=== PATIENT | female | born 1955 | race Caucasian/White ===

== ENCOUNTER 2017-11-24 21:22 | Inpatient (IN) | payer SELFPAY ==
[~2017-11-24] VITALS: Ht 167.6 cm; Wt 59.0 kg
[2017-11-24] MEDS ORDERED: SODIUM CHLORIDE 0.9% 500ML 500 ML IV ONE (22:00)
--- NOTE | 2017-11-24 22:15 | Diagnostic Imaging Report ---
Exam: Head CT without contrast History: Altered mental status, possible stroke Comparison studies: None Technique: Axial images were obtained from the skull base to the vertex. Coronal and sagittal images reconstructed from the axial data. Intravenous contrast: None Findings: Exam is somewhat limited by artifacts related to patient motion. Evaluation of the posterior fossa or temporal lobes are also limited by streak artifact from the skull base. Scalp: No abnormalities. Bones: No fractures, blastic or lytic lesions. Brain sulci: Mildly prominent. Ventricles: Mild compensatory dilatation. No hydrocephalus. Extra-axial spaces: No masses, no fluid collection. Parenchyma: Hypodensity centered along the posterior left superior temporal gyri with loss of aponte-white differentiation compatible with recent nonhemorrhagic vascular insult in the left MCA territory. Infarct may involve Wernicke's area. Mass effect is local. No mass or acute hemorrhage. A few scattered hypodensities in the supratentorial white matter are nonspecific but most compatible with chronic small vessel ischemic changes. There is a chronic left striatocapsular lacunar infarct. Sellar/suprasellar region: No abnormalities. Craniocervical junction: Patent foramen magnum. No Chiari one malformation. Incidental findings: Atherosclerotic calcifications in the carotid siphons and intradural vertebral arteries. IMPRESSION: Acute vascular insult in the posterior left temporal lobe in the left MCA vascular territory. No acute hemorrhage. Chronic findings: 1. Mild generalized volume loss. 2. Mild microvascular ischemic changes. 3. Left striatocapsular lacunar infarct Findings discussed with Dr. Cuenca at 10:05 PM on 11/24/2017. Signed by: Dr. Barrera Sher M.D. on 11/24/2017 10:12 PM
[2017-11-24] MEDS ORDERED: ONDANSETRON HCL INJ 2 MG/ML VIAL ONE (22:16)
[2017-11-24] MEDS ORDERED: ONDANSETRON HCL INJ 2 MG/ML VIAL IV STA (22:30)
[2017-11-24 22:34] LABS: BASOPHILS % 0.2 % (0.0-1.0); EOSINOPHILS # (AUTO) 0.1 (0.0-0.4); EOSINOPHILS % 0.5 % (0.0-6.0); HEMATOCRIT 45.6 % (34.2-44.1); HEMOGLOBIN 15.3 g/dL (12.0-16.0); LYMPHOCYTES % 7.5 % (18.0-39.1); MEAN CORPUSCULAR HEMOGLOBIN 28.5 pg (28-32); MEAN CORPUSCULAR HGB CONC 33.6 g/dL (31-35); MEAN CORPUSCULAR VOLUME 85.1 fL (81-99); MONOCYTES # (AUTO) 0.7 (0.2-0.8); MONOCYTES % 5.5 % (4.4-11.3); NEUTROPHILS # (AUTO) 11.3 (2.1-6.9); NEUTROPHILS % 85.8 % (38.7-80.0); PLATELET COUNT 215 x10e3/uL (140-360); RED BLOOD COUNT 5.36 x10e6/uL (3.6-5.1); RED CELL DISTRIBUTION WIDTH 13.5 % (11.7-14.4)
[2017-11-24 22:44] LABS: INR 1.11; PROTHROMBIN TIME 13.5 seconds (11.9-14.5)
[2017-11-24 22:45] LABS: PARTIAL THROMBOPLASTIN TIME 21.3 seconds (23.8-35.5)
[2017-11-24 22:56] LABS: ALANINE AMINOTRANSFERASE 83 IU/L (0-55); ALBUMIN 3.8 g/dL (3.5-5.0); ALBUMIN/GLOBULIN RATIO 0.9 (0.8-2.0); ALKALINE PHOSPHATASE 168 IU/L (40-150); ANION GAP 16.7 mmol/L (8-16); BLOOD UREA NITROGEN 15 mg/dL (7-26); BUN/CREATININE RATIO 17 (6-25); CALCIUM 9.4 mg/dL (8.4-10.2); CARBON DIOXIDE 19 mmol/L (22-29); CHLORIDE 102 mmol/L (98-107); CREATINE KINASE 59 IU/L (29-168); CREATININE, SERUM 0.88 mg/dL (0.57-1.11); EST GLOMERULAR FILTRATION RATE > 60 ML/MIN (60-); GLUCOSE 119 mg/dL (74-118); LIPASE 12 U/L (8-78); MAGNESIUM 1.6 MG/DL (1.3-2.1); POTASSIUM 3.7 mmol/L (3.5-5.1); SODIUM 134 mmol/L (136-145)
[2017-11-24 23:03] LABS: ACETAMINOPHEN < 3 ug/mL (10-30)
[2017-11-24 23:05] LABS: B-TYPE NATRIURETIC PEPTIDE2 40.3 pg/mL (0-100)
[2017-11-24] MEDS ORDERED: LABETALOL HCL 5 MG/ML 20ML VIAL IV STA (23:05)
[2017-11-24 23:16] LABS: THYROID STIMULATING HORMONE 1.056 uIU/mL (0.350-4.940)
--- NOTE | 2017-11-24 23:30 | Diagnostic Imaging Report ---
CHEST SINGLE (PORTABLE), 11/24/2017 9:44 PM Technique: CHEST SINGLE (PORTABLE) Comparison: 09/28/2008 Clinical history: Altered mental status Findings: See Impression Impression: 1. Normal cardiomediastinal silhouette. 2. Mild hyperinflation without consolidation or edema. 3. No pleural effusion or pneumothorax. Note the costophrenic angles are excluded from view. Signed by: Dr Melida Kumari MD on 11/24/2017 11:26 PM
[2017-11-24 23:43] LABS: AMPHETAMINES SCREEN,URINE NEGATIVE (NEGATIVE); BENZODIAZEPINES SCREEN,URINE NEGATIVE (NEGATIVE); PHENCYCLIDINE SCREEN,URINE NEGATIVE (NEGATIVE)
[2017-11-24] MEDS ORDERED: ASPIRIN 81 MG CHEW TAB PO ONE (23:45)
[2017-11-24 23:46] LABS: BILIRUBIN,URINE NEGATIVE (NEGATIVE); CLARITY,URINE CLEAR (CLEAR); COLOR,URINE YELLOW (YELLOW); KETONES,URINE NEGATIVE (NEGATIVE); LEUKOCYTE ESTERASE ,URINE NEGATIVE (NEGATIVE); NITRITE,URINE NEGATIVE (NEGATIVE); PROTEIN,URINE DIPSTICK NEGATIVE (NEGATIVE); URINE UROBILINOGEN 0.2 mg/dL (0.2 - 1)
[2017-11-24 23:54] LABS: BACTERIA,URINE FEW /HPF; EPITHELIAL CELLS,URINE FEW /LPF; WBC,URINE (MAN) 0-5 /HPF (0-5)
[2017-11-25] VITALS (10 sets, daily range): BP systolic 147–221; BP diastolic 56–105
[2017-11-25] MEDS ORDERED: ACETAMINOPHEN 325 MG TAB ONE (00:51)
[2017-11-25] MEDS: FAMOTIDINE 20 MG/2 ML VIAL IV SCH ×3 (02:02→19:49)
[2017-11-25] MEDS: ONDANSETRON HCL INJ 2 MG/ML VIAL IV PRN ×3 (02:30→19:49)
[2017-11-25] MEDS ORDERED: MORPHINE SULFATE INJ 4 MG/ML INJ IV ONE (06:00)
[2017-11-25] MEDS ORDERED: MORPHINE SULFATE 2 MG/ML SYR ONE (06:03)
[2017-11-25] MEDS ORDERED: ASPIRIN 81 MG ENTERIC COATED PO SCH (09:00)
[2017-11-25 09:09] LABS: BASOPHILS % 0.1 % (0.0-1.0); HEMATOCRIT 43.8 % (34.2-44.1); HEMOGLOBIN 14.8 g/dL (12.0-16.0); LYMPHOCYTES # (AUTO) 0.8 (1.0-3.2); LYMPHOCYTES % 5.4 % (18.0-39.1); MEAN CORPUSCULAR HEMOGLOBIN 28.6 pg (28-32); MEAN CORPUSCULAR HGB CONC 33.8 g/dL (31-35); MEAN CORPUSCULAR VOLUME 84.7 fL (81-99); MONOCYTES # (AUTO) 0.7 (0.2-0.8); MONOCYTES % 4.4 % (4.4-11.3); NEUTROPHILS # (AUTO) 13.4 (2.1-6.9); NEUTROPHILS % 89.5 % (38.7-80.0); PLATELET COUNT 206 x10e3/uL (140-360); RED BLOOD COUNT 5.17 x10e6/uL (3.6-5.1); RED CELL DISTRIBUTION WIDTH 13.4 % (11.7-14.4)
[2017-11-25 09:54] LABS: ALANINE AMINOTRANSFERASE 63 IU/L (0-55); ALBUMIN 3.5 g/dL (3.5-5.0); ALBUMIN/GLOBULIN RATIO 0.9 (0.8-2.0); ALKALINE PHOSPHATASE 145 IU/L (40-150); ANION GAP 14.8 mmol/L (8-16); BLOOD UREA NITROGEN 13 mg/dL (7-26); BUN/CREATININE RATIO 16 (6-25); CALCIUM 8.8 mg/dL (8.4-10.2); CARBON DIOXIDE 20 mmol/L (22-29); CHLORIDE 106 mmol/L (98-107); CREATININE, SERUM 0.82 mg/dL (0.57-1.11); EST GLOMERULAR FILTRATION RATE > 60 ML/MIN (60-); GLUCOSE 130 mg/dL (74-118); POTASSIUM 3.8 mmol/L (3.5-5.1); SODIUM 137 mmol/L (136-145)
[2017-11-25] MEDS ORDERED: LORAZEPAM INJ 2 MG/ML VIAL IV ONE ×2 (10:00→12:30)
[2017-11-25 10:30] LABS: CREATINE KINASE 32 IU/L (29-168)
[2017-11-25] MEDS: LABETALOL HCL 5 MG/ML 20ML VIAL IV PRN ×2 (11:10→22:15)
--- NOTE | 2017-11-25 11:23 | Consultation ---
DATE OF CONSULTATION: November 25, 2017 NEUROLOGY CONSULTATION HISTORY OF PRESENT ILLNESS: Mrs. Mckeon is a 62-year-old, [id number] woman with unknown past medical history admitted to [facility] on November 25, 2017 for a stroke. The patient is aphasic and unable to provide any history. History is obtained from her , Jonny Mckeon, over the telephone. Some time during the afternoon on November 24, 2017, patient experienced what is presumed to be an abrupt onset of mixed aphasia. The patient's reports arriving home from work at approximately 7 p.m. on November 24, 2017. He reports Mrs. Mckeon "had trouble getting her words our." To his knowledge, there was no visual field defect or other impairment, facial droop, weakness, or dizziness. He does report mild gait impairment as well as mild confusion. Mrs. Guthrie has not experienced similar symptoms previously. After the symptoms persisted for approximately 4 hours, Mrs. Mckeon was brought to the Emergency Center at [facility] for further evaluation. Upon arrival in the Emergency Center, the patient had a temperature of 99.9 degrees Fahrenheit, blood pressure 190/80 mmHg, and pulse of 85 beats per minute. Her neurological examination was documented as follows: Alert. Expressive aphasia. Cranial nerves normal (as tested). No cerebellar findings. No motor deficit. No sensory deficit. Reflexes normal. A CT of the brain without contrast was performed and revealed an acute stroke in the left posterior middle cerebral artery distribution. Mrs. Mckeon was admitted to [facility] for further evaluation and treatment of her symptoms. REVIEW OF SYSTEMS: Unable to obtain secondary to the patient being aphasic. PAST MEDICAL HISTORY: Hypertension, congestive heart failure. Both were reportedly diagnosed during a hospitalization more than 1 year ago. Mrs. Mckeon does not routinely see a physician. PAST SURGICAL HISTORY: section, bilateral tubal ligation. PAST HOSPITALIZATIONS: Surgeries/procedures, multiple other hospitalizations for various reasons. FAMILY HISTORY: Patient's mother is recently . She had hypertension. A brother is from complications of diabetes mellitus. He had liver disease as well. A son is from an unknown cancer. All other family medical history is unknown. SOCIAL HISTORY: Patient is . Her believes she graduated high school. Mrs. Mckeon is unemployed. She smokes approximately 1 pack of cigarettes per day. Patient's reports she does not drink alcohol "on a regular basis." Mrs. Mckeon's does report occasional marijuana use. He not report use of opiates, methadone, or other recreational drugs. HOME MEDICATIONS: None. ALLERGIES: MRS. MCKEON HAS REPORTED ALLERGY TO CODEINE. NO KNOWN FOOD ALLERGIES. NO KNOWN ALLERGIES TO LATEX. NO KNOWN ALLERGY TO IODINE OR OTHER CONTRAST MATERIALS. PHYSICAL EXAMINATION: VITAL SIGNS: Height 66 inches, weight 130 pounds. BMI 21.0 kg per meter squared. Blood pressure 210/96 mmHg, pulse 72 beats per minute, respiratory rate 18 breaths per minute, oxygen saturation 100% on room air. GENERAL: The patient is awake and alert. Mildly distressed. Aphasic. HEENT: Normocephalic and atraumatic. Pupils are equal, round and reactive to light. Moist mucous membranes. NECK: Supple. No appreciable thyromegaly. No appreciable carotid bruits. CARDIOVASCULAR: S1 and S2. Regular rate and rhythm. No murmurs, rubs or gallops. RESPIRATORY: Clear to auscultation bilaterally. No wheezes, rhonchi or rales. EXTREMITIES: The skin is warm and dry. No clubbing, cyanosis or edema. The posterior tibial and dorsalis pedis pulses are 2+ and symmetric. SKIN: Abrasions and ecchymoses over the forearms and forelegs. NEUROLOGIC: Memory/attention: The patient is awake and alert. Orientation cannot be assessed secondary to aphasia. CRANIAL NERVES: Cranial nerve I: Not tested. Cranial nerves II, III, IV, : Pupils are equal and round, react briskly to light (from 4 mm to 2 mm). Extraocular movements intact. No nystagmus. Cranial nerve V: Sensation to light touch and pinprick is intact in the bilateral V1 through V3 distributions. Strength of the temporalis and masseter muscles is within normal limits. Cranial nerve VII: The face is symmetric, as are all facial movements. Strength is within normal limits. Cranial nerve VIII: Hearing is intact to finger rub bilaterally. Cranial nerve IX and X: The soft palate elevates equally and symmetrically. Cranial nerve XI: Normal strength of the bilateral sternocleidomastoid and trapezius muscles. Cranial nerve XII: The tongue protrudes midline and moves symmetrically from side to side. STRENGTH: Bulk is normal. The patient maintains both arms against gravity for more than 10 seconds each without drift. The patient maintains both legs against gravity for more than 5 seconds each without drift. Tone is normal. DTRs: Deep tendon reflexes are 1+ and symmetric at the triceps, biceps, brachioradialis, patellas, and Achilles. Plantar responses are flexor bilaterally. SENSATION: Intact to light touch and pinprick in both arms and both legs. CEREBELLAR: Unable to assess secondary to aphasia. GAIT: Deferred. SPEECH: The patient is severely aphasic, appears to be a mixed expressive/receptive aphasia. Repetition not intact. INVOLUNTARY MOVEMENTS: None. PRONATOR DRIFT: None. LABORATORY DATA: Sodium 137, potassium 3.8, chloride 106, carbon dioxide 20, anion gap 14.8, BUN 13, creatinine 0.82, estimated GFR greater than 60. BUN to creatinine ratio 16. Glucose 130, calcium 8.8, total bilirubin 0.6, AST 28, ALT 63, alkaline phosphatase 145, total protein 7.6, albumin 3.5 and globulins 4.1, albumin to globulin ratio 0.9. Lactic acid 12.9. Ammonia 70. B-natriuretic peptide 40.3. Creatinine kinase 59. CK-MB 2.90. Troponin I less than 0.001. Lipase 12. TSH 1.056. CBC with differential and platelets reveals a white blood cell count of 14.92 with 89.5% neutrophils, 5.4% lymphocytes, 4.4% monocytes, 0.0% eosinophils and 0.1% basophils. Hemoglobin and hematocrit are 14.8 and 43.8, respectively. The platelet count is 206,000. PT 13.5 and INR 1.11. PTT 21.3. Urinalysis is significant for specific gravity of 1.005, trace blood, and 6 to 10 red blood cells. Serum acetaminophen level is less than 3, serum ethyl alcohol level was less than 10.0. Urine drug screen is positive for opiates, methadone, and cannabinoids. DIAGNOSTIC STUDIES: 1. EKG 11/24/2017: Normal sinus rhythm at 72 beats per minute. 2. CT of the brain without contrast 11/24/2017: On my review, there is an acute to subacute ischemia in the left posterior middle cerebral artery distribution. There is a remote lacunar infarct in the left striatal capsular region. There is diffuse cerebral atrophy, slightly more than expected for age. There are findings compatible with mild to moderate chronic small vessel ischemic disease. 3. Chest x-ray 11/24/2017: (1) Normal cardiomediastinal silhouette. (2) Hyperinflation without consolidation or edema. (3) No pleural effusion, or pneumothorax. Note: The costophrenic angles are excluded from view. ASSESSMENT AND PLAN: Mrs. Mckeon is a 62-year-old [id number] woman with unknown past medical history (does not see a physician routinely) admitted to [facility] with a left middle cerebral artery stroke. Patient's neurological examination is significant for a severe mixed aphasia. Her laboratory data and other diagnostic studies have been reviewed and are documented above. RECOMMENDATIONS: 1. Lipid panel and hemoglobin A1c. 2. MRI of the brain without contrast has been ordered and is pending. 3. MRA of the brain and neck without contrast has been ordered and is pending. 4. Echocardiogram has been ordered and is pending. 5. Aspirin 325 mg daily by mouth for stroke prophylaxis. 6. Allow permissive hypertension for 24 to 48 hours following an ischemic stroke and pending the results of vessel imaging. Mrs. Mckeon has PRN labetalol available. 7. Follow up the results of the lipid panel. 8. Follow up the results of the hemoglobin A1c. Tight glycemic control is recommended. 9. GI prophylaxis with Pepcid 20 mg intravenously every 12 hours. DVT prophylaxis with Lovenox 40 mg subcutaneously daily. 10. Speech and physical therapy consultations have been ordered. 11. Smoking cessation counseling was provided to the patient. 12. Defer treatment of the remaining medical comorbidities to primary and other services following the patient. Thank you for this consultation. I will continue to follow this patient while she remains in the hospital. TIME SPENT: 70 minutes. Job#: [id number] ISAIAS
--- NOTE | 2017-11-25 13:09 | Diagnostic Imaging Report ---
History: Altered mental status Comparison studies: Head CT from 11/24/2017 at 2141 hours. Technique: Sagittal T2; axial DWI, FLAIR, MPGR, T1, Coronal FLAIR. Intravenous contrast: None Findings: All the sequences except for the DWI are suboptimal due to motion artifacts. In spite of the artifacts: Scalp: Normal in signal . No masses . Bone marrow: Normal in signal intensity. Extra-axial: No masses or fluid collections. Brain sulci: Appropriate for age. Ventricles: Normal in size . No hydrocephalus . Parenchyma: An acute nonhemorrhagic cortical vascular insult (hyperintense on T2 and T2 FLAIR and associated with restricted diffusion) is centered in the left superior temporal gyrus but also involve the posterior aspect of the insula. There are additional punctate infiltrates in the deep left frontal and parietal ramos radiata and centrum semiovale bilaterally. No masses, hemorrhage, or additional acute or chronic cortical ischemic insults. Suprasellar region: No abnormalities. Craniocervical junction: No abnormalities. Patent foramen magnum. No Chiari one malformation. Vessels: Normal flow-voids in the arteries and sinuses. IMPRESSION: 1. Suboptimal study due to motion artifact. 2. In spite of the artifacts, the MRI corroborates the presence of an acute nonhemorrhagic cortical vascular insult in the left superior temporal gyrus (left MCA vascular territory) that also involves the posterior insula. Additional punctate acute insults in the deep frontal and parietal white matter may be insufficiency related. Recommend obtaining cervical and intracranial studies with a CTA or when on MRA when patient can tolerate either one of them. 3. No additional gross abnormalities. Signed by: Dr. Arben Ruiz M.D. on 11/25/2017 1:06 PM
[2017-11-25] MEDS: ENOXAPARIN SOD INJ 40 MG/0.4 ML SYR SC SCH (16:42)
[2017-11-25] MEDS: ACETAMINOPHEN 325 MG TAB PO PRN (19:49)
[2017-11-26] VITALS (7 sets, daily range): BP systolic 179–217; BP diastolic 83–93
[2017-11-26] MEDS: ACETAMINOPHEN 325 MG TAB PO PRN ×2 (03:49→22:17)
[2017-11-26] MEDS: LABETALOL HCL 5 MG/ML 20ML VIAL IV PRN (03:49)
[2017-11-26 06:32] LABS: BASOPHILS % 0.3 % (0.0-1.0); EOSINOPHILS # (AUTO) 0.1 (0.0-0.4); EOSINOPHILS % 0.7 % (0.0-6.0); HEMATOCRIT 43.2 % (34.2-44.1); HEMOGLOBIN 14.6 g/dL (12.0-16.0); LYMPHOCYTES # (AUTO) 1.1 (1.0-3.2); LYMPHOCYTES % 8.2 % (18.0-39.1); MEAN CORPUSCULAR HEMOGLOBIN 28.5 pg (28-32); MEAN CORPUSCULAR HGB CONC 33.8 g/dL (31-35); MEAN CORPUSCULAR VOLUME 84.2 fL (81-99); MONOCYTES # (AUTO) 0.9 (0.2-0.8); MONOCYTES % 6.8 % (4.4-11.3); NEUTROPHILS # (AUTO) 10.9 (2.1-6.9); NEUTROPHILS % 83.4 % (38.7-80.0); PLATELET COUNT 209 x10e3/uL (140-360); RED BLOOD COUNT 5.13 x10e6/uL (3.6-5.1); RED CELL DISTRIBUTION WIDTH 13.4 % (11.7-14.4)
[2017-11-26 06:45] LABS: ANION GAP 13.6 mmol/L (8-16); BLOOD UREA NITROGEN 17 mg/dL (7-26); BUN/CREATININE RATIO 19 (6-25); CALCIUM 8.9 mg/dL (8.4-10.2); CARBON DIOXIDE 20 mmol/L (22-29); CHLORIDE 106 mmol/L (98-107); CREATININE, SERUM 0.88 mg/dL (0.57-1.11); EST GLOMERULAR FILTRATION RATE > 60 ML/MIN (60-); GLUCOSE 111 mg/dL (74-118); POTASSIUM 3.6 mmol/L (3.5-5.1); SODIUM 136 mmol/L (136-145)
[2017-11-26 07:06] LABS: CHOL/HDL RATIO 5.7 (3.0-3.6)
[2017-11-26] MEDS: ONDANSETRON HCL INJ 2 MG/ML VIAL IV PRN ×2 (07:35→19:43)
[2017-11-26] MEDS: FAMOTIDINE 20 MG/2 ML VIAL IV SCH ×2 (08:03→20:54)
[2017-11-26] MEDS: ASPIRIN 325 MG TAB PO SCH (08:10)
--- NOTE | 2017-11-26 10:43 | Cardiology Report ---
DATE OF STUDY: November 25, 2017 ECHOCARDIOGRAM M-MODE: Normal chamber sizes. Left ventricular hypertrophy. Normal contractility. Normal mitral and aortic valves. No pericardial effusion. SECTOR SCAN: Normal chamber sizes. Left ventricular hypertrophy. Normal contractility. Sclerosis of the mitral valve annulus. Normal aortic and tricuspid valves. No pericardial effusion. CARDIAC DOPPLER STUDY WITH COLOR: Trace mitral regurgitation. CONCLUSION 1. Mitral annular sclerosis with trace mitral regurgitation. 2. Evidence of diastolic dysfunction. 3. Left ventricular hypertrophy with ejection fraction of approximately 65%. Job#: [id number] RI cc: KELLI SILVA MD
[2017-11-26] MEDS ORDERED: LORAZEPAM INJ 2 MG/ML VIAL IV ONE (11:30)
--- NOTE | 2017-11-26 13:13 | Diagnostic Imaging Report ---
History: CVA Comparison studies: None Technique: 2-D [id number]-[id number]-[id number] cervical. 3-D shfw-fm-xzflyn intracranial. Contrast: None Findings: See impression IMPRESSION: Significantly suboptimal cervical and intracranial MRAs due to motion artifacts. Cervical MRA: 1. No gross major vessel occlusion (carotid and vertebral arteries). 2. Otherwise, cannot adequately evaluate. Intracranial MRA: 1. Decreased flow in the mid and distal portions of the M1 segments of the left MCA suggests significant atherosclerotic disease but cannot further evaluate due to motion artifacts. This finding correlates with the acute left MCA vascular insult described on the MRI. 2. Otherwise, no additional gross abnormalities. 3. 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 Recommendation: Cervical and intracranial CTA's as there is less chance the patient may move during the exam if there is need for further imaging. Signed by: Dr. Arben Ruiz M.D. on 11/26/2017 5:57 PM
--- NOTE | 2017-11-26 13:13 | Diagnostic Imaging Report ---
History: CVA Comparison studies: None Technique: 2-D jylb-[id number]-khpbrq cervical. 3-D vzna-cj-ijwvqg intracranial. Contrast: None Findings: See impression IMPRESSION: Significantly suboptimal cervical and intracranial MRAs due to motion artifacts. Cervical MRA: 1. No gross major vessel occlusion (carotid and vertebral arteries). 2. Otherwise, cannot adequately evaluate. Intracranial MRA: 1. Decreased flow in the mid and distal portions of the M1 segments of the left MCA suggests significant atherosclerotic disease but cannot further evaluate due to motion artifacts. This finding correlates with the acute left MCA vascular insult described on the MRI. 2. Otherwise, no additional gross abnormalities. 3. 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 Recommendation: Cervical and intracranial CTA's as there is less chance the patient may move during the exam if there is need for further imaging. Signed by: Dr. Arben Ruiz M.D. on 11/26/2017 5:57 PM
[2017-11-26] MEDS ORDERED: AMLODIPINE BESYLATE 10 MG TAB PO ONE (16:45)
[2017-11-26] MEDS: ENOXAPARIN SOD INJ 40 MG/0.4 ML SYR SC SCH (16:55)
[2017-11-26] MEDS ORDERED: TRAZODONE HCL 50 MG TAB PO SCH (21:00)
[2017-11-26] MEDS ORDERED: SIMVASTATIN 20 MG TAB PO SCH (21:00)
[2017-11-27] VITALS (7 sets, daily range): BP systolic 166–192; BP diastolic 76–100
[2017-11-27] MEDS ORDERED: IBUPROFEN 600 MG TAB PO PRN (00:15)
[2017-11-27] MEDS: ASPIRIN 325 MG TAB PO SCH (08:15)
[2017-11-27] MEDS: FAMOTIDINE 20 MG/2 ML VIAL IV SCH (08:15)
[2017-11-27] MEDS ORDERED: AMLODIPINE BESYLATE 10 MG TAB PO SCH (09:00)
[2017-11-27] MEDS: ONDANSETRON HCL INJ 2 MG/ML VIAL IV PRN (10:38)
[2017-11-27] MEDS ORDERED: ASPIRIN325 MG PO (11:29)
[2017-11-27] MEDS ORDERED: NORVASC5 MG PO (11:29)
[2017-11-27] MEDS ORDERED: ZOCOR20 MG PO ×2 (11:31→11:32)
--- NOTE | 2017-11-27 13:57 | Discharge Summary ---
PRIMARY CARE DOCTOR: None FINAL DIAGNOSIS: Acute left middle cerebral artery stroke. SECONDARY DIAGNOSES 1. Chronic obstructive pulmonary disease. 2. Hypertension. 3. Mild dyslipidemia. CONSULTANTS: Dr. Wang, neurology. PROCEDURES/STUDIES PERFORMED: MRI of the brain. HISTORY: Per [facility] and P. HOSPITAL COURSE: Patient was admitted. Workup initiated. Fortunately, her aphasia improved. She had no problems swallowing. She is ambulating without any difficulty. I have stressed with her the importance of stopping smoking, and also taking her aspirin along with her blood pressure and cholesterol medicines. I have also discussed the patient with Dr. Wang. The patient will be going home today. The patient was seen and examined today. It took 32 minutes total to discharge the patient. CONDITION ON DISCHARGE: Stable. DISCHARGE MEDICATIONS: Please see medication reconciliation form. KELLI SILVA M.D. Job#: [id number] RADHA
== END 2017-11-27 11:57 | disposition home or self-care (01) | DRG 65 ==
LOC: ER 21:22 → ERHOLD 11-25 01:13 → IMCU 11-25 02:35
PROVIDERS: ADMIT Internal Medicine; ATTEND Internal Medicine
DX: I63.512 Cerebral infarction due to unspecified occlusion or stenosis of left middle cerebral artery (principal); E87.2 Acidosis; J44.9 Chronic obstructive pulmonary disease, unspecified; I10 Essential (primary) hypertension; E78.5 Hyperlipidemia, unspecified; R47.01 Aphasia; F17.210 Nicotine dependence, cigarettes, uncomplicated; D72.829 Elevated white blood cell count, unspecified; F12.10 Cannabis abuse, uncomplicated; F11.10 Opioid abuse, uncomplicated; Z79.82 Long term (current) use of aspirin; Z88.5 Allergy status to narcotic agent
CPT/HCPCS: 36415; 51700; 70450; 70544; 70547; 70551; 71045; 80048; 80053; 80061; 80307; 80320; 80329; 81001; 82140; 82550; 82553; 82948; 83036; 83605; 83690; 83735; 83880; 84443; 84484; 85025; 85610; 85730; 87040; 87086; 92523; 93005; 93306; 99284; J1650; J2060; J2270; J2405; J7040

== ENCOUNTER 2022-04-20 15:58 | Emergency (ER) | payer MEDICARE, OTHER ==
[~2022-04-20] VITALS: Ht 167.6 cm; Wt 59.0 kg
[~2022-04-20 15:58] MED LIST: ASPIRIN325 MG PO; NORVASC5 MG PO; ZOCOR20 MG PO
[2022-04-20 16:36] LABS: BASOPHILS % 0.1 % (0.0-1.0); EOSINOPHILS % 0.1 % (0.0-6.0); HEMATOCRIT 45.1 % (34.2-44.1); HEMOGLOBIN 14.3 g/dL (12.0-16.0); LYMPHOCYTES # (AUTO) 1.6 (1.0-3.2); LYMPHOCYTES % 11.9 % (18.0-39.1); MEAN CORPUSCULAR HEMOGLOBIN 27.1 pg (28-32); MEAN CORPUSCULAR HGB CONC 31.7 g/dL (31-35); MEAN CORPUSCULAR VOLUME 85.6 fL (81-99); MONOCYTES # (AUTO) 1.4 (0.2-0.8); MONOCYTES % 9.9 % (4.4-11.3); NEUTROPHILS # (AUTO) 10.5 (2.1-6.9); NEUTROPHILS % 77.6 % (38.7-80.0); PLATELET COUNT 217 x10e3/uL (140-360); RED BLOOD COUNT 5.27 x10e6/uL (3.6-5.1); RED CELL DISTRIBUTION WIDTH 13.2 % (11.7-14.4)
[2022-04-20 16:53] LABS: ALBUMIN 3.3 g/dL (3.5-5.0); ALBUMIN/GLOBULIN RATIO 0.8 (0.8-2.0); ANION GAP 18.7 mmol/L (8-16); CALCIUM 8.6 mg/dL (8.4-10.2); CREATININE, SERUM 1.12 mg/dL (0.57-1.11); POTASSIUM 3.7 mmol/L (3.5-5.1)
[2022-04-20 16:55] LABS: B-TYPE NATRIURETIC PEPTIDE2 12.4 pg/mL (0-100)
[2022-04-20] MEDS ORDERED: SODIUM CHLORIDE 0.9% 1000ML 1,000 ML IV ONE (17:15)
[2022-04-20 17:44] LABS: CLARITY,URINE SL CLOUDY (CLEAR); COLOR,URINE AMBER (YELLOW); KETONES,URINE 1+ (NEGATIVE); LEUKOCYTE ESTERASE ,URINE TRACE (NEGATIVE); NITRITE,URINE NEGATIVE (NEGATIVE); PROTEIN,URINE DIPSTICK 1+ (NEGATIVE); URINE UROBILINOGEN 1 mg/dL (0.2 - 1)
[2022-04-20 17:54] LABS: AMORPHOUS SEDIMENT,URINE MODERATE (FEW); BACTERIA,URINE FEW /HPF; EPITHELIAL CELLS,URINE MODERATE /LPF; WBC,URINE (MAN) 0-5 /HPF (0-5)
[2022-04-20] MEDS ORDERED: MEDROL4 M2 PO (18:13)
[2022-04-20] MEDS ORDERED: BENZONATATE200 MG PO (18:13)
== END 2022-04-20 18:40 | disposition home or self-care (01) ==
LOC: ER 16:16
DX: R06.02 Shortness of breath (principal); J10.1 Influenza due to other identified influenza virus with other respiratory manifestations; R05.9 Cough, unspecified; I10 Essential (primary) hypertension; I50.9 Heart failure, unspecified; Z20.822 Contact with and (suspected) exposure to COVID-19; R94.31 Abnormal electrocardiogram [ECG] [EKG]; F17.210 Nicotine dependence, cigarettes, uncomplicated
CPT/HCPCS: 36415; 71045; 80053; 81001; 82550; 82553; 83605; 83880; 84484; 85025; 87040; 93005; 99284; J0696; J7030; U0002

== ENCOUNTER → 2022-10-12 | Outpatient (CLI) | payer MEDICARE ==
[~2022-10-12] MED LIST changes: +BENZONATATE200 MG PO; +MEDROL4 M2 PO
== END ==
LOC: CARD 12:39
PROVIDERS: ATTEND Family Medicine
DX: Z12.31 Encounter for screening mammogram for malignant neoplasm of breast (principal); M85.88 Other specified disorders of bone density and structure, other site; M54.6 Pain in thoracic spine; M54.50 Low back pain, unspecified; I73.9 Peripheral vascular disease, unspecified
CPT/HCPCS: 72070; 72110; 77067; 77080; 93925

== ENCOUNTER → 2022-11-30 | Outpatient (CLI) | payer MEDICARE ==
[~2022-11-30] MED LIST changes: +ULTRAM 50MG50 MG PO
== END ==
LOC: MAMMO 10:48
PROVIDERS: ATTEND Family Medicine
DX: R92.2 Inconclusive mammogram (principal)

== ENCOUNTER 2022-12-01 11:06 | Emergency (ER) | payer MEDICARE ==
[~2022-12-01] VITALS: Ht 167.6 cm; Wt 59.0 kg
[~2022-12-01 11:06] MED LIST changes: -ULTRAM 50MG50 MG PO
[2022-12-01 11:15] VITALS: O2SAT 99
[2022-12-01] MEDS ORDERED: ULTRAM 50MG50 MG PO (14:22)
== END 2022-12-01 15:09 | disposition home or self-care (01) ==
LOC: ER 11:59
DX: R07.89 Other chest pain (principal); S20.211A Contusion of right front wall of thorax, initial encounter; I71.23 Aneurysm of the descending thoracic aorta, without rupture; I10 Essential (primary) hypertension; I50.9 Heart failure, unspecified
CPT/HCPCS: 71250; 99284

== ENCOUNTER 2023-04-26 07:24 | Inpatient (IN) | payer MEDICARE ==
[~2023-04-26] VITALS: Ht 167.6 cm; Wt 69.9 kg
[~2023-04-26 07:24] MED LIST changes: +ULTRAM 50MG50 MG PO
[2023-04-26] MEDS ORDERED: ONDANSETRON HCL INJ 2MG/ML 2ML 2 MG/ML VIAL IV STA (07:39)
[2023-04-26] MEDS ORDERED: KETOROLAC TROMETHAMINE 30 MG/ML VIAL IV STA (07:39)
[2023-04-26] MEDS ORDERED: SODIUM CHLORIDE 0.9% 1000ML 1,000 ML IV ONE (07:45)
[2023-04-26 08:10] LABS: BASOPHILS # (AUTO) 0.1 (0.0-0.1); BASOPHILS % 0.6 % (0.0-1.0); EOSINOPHILS # (AUTO) 0.5 (0.0-0.4); EOSINOPHILS % 5.2 % (0.0-6.0); HEMATOCRIT 40.9 % (34.2-44.1); HEMOGLOBIN 13.3 g/dL (12.0-16.0); LYMPHOCYTES # (AUTO) 2.1 (1.0-3.2); LYMPHOCYTES % 20.5 % (18.0-39.1); MEAN CORPUSCULAR HGB CONC 32.5 g/dL (31-35); MEAN CORPUSCULAR VOLUME 83.1 fL (81-99); MONOCYTES # (AUTO) 0.7 (0.2-0.8); NEUTROPHILS # (AUTO) 6.8 (2.1-6.9); NEUTROPHILS % 66.3 % (38.7-80.0); PLATELET COUNT 280 x10e3/uL (140-360); RED BLOOD COUNT 4.92 x10e6/uL (3.6-5.1); RED CELL DISTRIBUTION WIDTH 13.6 % (11.7-14.4); WHITE BLOOD COUNT 10.19 x10e3/uL (4.8-10.8)
[2023-04-26 08:41] LABS: ALBUMIN 3.8 g/dL (3.5-5.0); ANION GAP 12.3 mmol/L (8-16); BILIRUBIN,TOTAL 0.4 mg/dL (0.2-1.2); CALCIUM 9.1 mg/dL (8.4-10.2); CREATININE, SERUM 0.99 mg/dL (0.57-1.11); POTASSIUM 4.3 mmol/L (3.5-5.1); TOTAL PROTEIN 7.6 g/dL (6.5-8.1)
[2023-04-26] MEDS ORDERED: IOPAMIDOL 370 MG/ML 100 ML INFUS..BTL INJ ONE (08:58)
[2023-04-26] MEDS ORDERED: Morphine 4mg INJECTION 4 MG/ML INJ IV ONE (09:00)
[2023-04-26 10:49] LABS: CLARITY,URINE CLEAR (CLEAR); COLOR,URINE YELLOW (YELLOW); PH,URINE 7 (5 - 7)
[2023-04-26 10:50] LABS: BILIRUBIN,URINE NEGATIVE (NEGATIVE); GLUCOSE, URINE NEGATIVE (NEGATIVE); KETONES,URINE NEGATIVE (NEGATIVE); LEUKOCYTE ESTERASE ,URINE NEGATIVE (NEGATIVE); NITRITE,URINE NEGATIVE (NEGATIVE); PROTEIN,URINE DIPSTICK NEGATIVE (NEGATIVE); URINE UROBILINOGEN 0.2 mg/dL (0.2 - 1)
[2023-04-26 10:57] LABS: EPITHELIAL CELLS,URINE RARE /LPF; RBC,URINE 0-5 /HPF (0-5); WBC,URINE (MAN) 0-5 /HPF (0-5)
[2023-04-26] MEDS ORDERED: FAMOTIDINE 20 MG/2 ML VIAL IV STA (11:21)
[2023-04-26] MEDS ORDERED: ACID REDUCER20 MG PO (11:25)
[2023-04-26] MEDS ORDERED: DONNATAL/LIDOCAINE/MAALOX 30 ML SUSP PO ONE (11:30)
[2023-04-26] MEDS ORDERED: CYCLOBENZAPRINE HCL 10 MG TAB PO ONE (11:30)
[2023-04-26] MEDS ORDERED: FENTANYL CITRATE/PF 100MCG/2 ML INJ IV ONE (12:00)
[2023-04-26] MEDS ORDERED: FENTANYL CITRATE/PF 100MCG/2 ML INJ ONE (12:08)
[2023-04-26] MEDS ORDERED: BELLADONNA ALK/PHENOBARBITAL 5 ML UDC ONE (12:09)
[2023-04-26] MEDS ORDERED: MAGNESIUM/ALUMINUM/SIMETHICONE 30 ML UDC ONE (12:10)
[2023-04-26] MEDS ORDERED: Morphine 2mg Syringe 2 MG/ML SYR IV PRN (13:00)
[2023-04-26] MEDS ORDERED: ASPIRIN 81 MG CHEW TAB PO ONE (13:00)
[2023-04-26] MEDS ORDERED: LIDOCAINE HCL 2% LOCAL INJ 5 ML SDV VIAL INJ ONE (13:08)
[2023-04-26 13:50] VITALS: BP 148/48; PULSE 61; RESP 17; TEMP 97.5; O2SAT 100
[2023-04-26] MEDS: HYDROMORPHONE 1MG/1ML INJ IV PRN ×3 (14:50→23:33)
[2023-04-26] MEDS: ONDANSETRON HCL INJ 2MG/ML 2ML 2 MG/ML VIAL IV PRN (14:50)
[2023-04-26] MEDS ORDERED: AMLODIPINE BESY10 MG PO (15:28)
[2023-04-26] MEDS ORDERED: FLONASE ALLERG9.9 ML INH (15:28)
[2023-04-26] MEDS ORDERED: NEURONTIN300 MG PO (15:28)
[2023-04-26] MEDS ORDERED: CYMBALTA30 MG PO (15:28)
[2023-04-26 15:36] VITALS: BP 148/48; PULSE 61; RESP 17; TEMP 97.5; O2SAT 100
[2023-04-26 15:41] VITALS: BP 121/60; PULSE 52; RESP 16; TEMP 97.8; O2SAT 100
[2023-04-26 15:48] VITALS: BP 148/48; PULSE 61; RESP 17; TEMP 97.5; O2SAT 100
[2023-04-26] MEDS: SODIUM CHLORIDE 0.9% 1000ML 1,000 ML IV SCH ×2 (17:42→20:20)
[2023-04-26] MEDS ORDERED: ACETAMINOPHEN 325 MG TAB PO PRN (19:30)
[2023-04-26 20:00] VITALS: BP 153/49; PULSE 48; RESP 18; TEMP 97.9; O2SAT 100
[2023-04-26] MEDS: GABAPENTIN 300 MG CAP PO SCH (20:43)
[2023-04-26] MEDS: HYDROCODONE/APAP 10MG-325MG TAB PO PRN (20:43)
[2023-04-26 21:31] LABS: TROPONIN I 0.004 ng/mL (0-0.300)
[2023-04-26 22:09] VITALS: BP 153/49; PULSE 48; RESP 18; TEMP 97.9; O2SAT 100
[2023-04-27] VITALS (8 sets, daily range): BP systolic 107–173; BP diastolic 44–66; PULSE 49–87; RESP 16–18; TEMP 97.5–98.2; O2SAT 94–100
[2023-04-27] MEDS: ONDANSETRON HCL INJ 2MG/ML 2ML 2 MG/ML VIAL IV PRN ×3 (00:32→21:28)
[2023-04-27] MEDS: HYDROMORPHONE 1MG/1ML INJ IV PRN ×4 (04:04→21:34)
[2023-04-27] MEDS: SODIUM CHLORIDE 0.9% 1000ML 1,000 ML IV SCH ×2 (05:00→14:57)
[2023-04-27] MEDS: GABAPENTIN 300 MG CAP PO SCH ×5 (05:26→21:28)
[2023-04-27] MEDS: HYDROCODONE/APAP 10MG-325MG TAB PO PRN (05:27)
[2023-04-27 05:45] LABS: BASOPHILS % 0.6 % (0.0-1.0); EOSINOPHILS # (AUTO) 0.5 (0.0-0.4); EOSINOPHILS % 6.7 % (0.0-6.0); HEMATOCRIT 37.8 % (34.2-44.1); HEMOGLOBIN 12.3 g/dL (12.0-16.0); LYMPHOCYTES # (AUTO) 0.7 (1.0-3.2); MEAN CORPUSCULAR HEMOGLOBIN 27.5 pg (28-32); MEAN CORPUSCULAR HGB CONC 32.5 g/dL (31-35); MEAN CORPUSCULAR VOLUME 84.6 fL (81-99); MONOCYTES # (AUTO) 0.5 (0.2-0.8); MONOCYTES % 7.4 % (4.4-11.3); NEUTROPHILS # (AUTO) 5.4 (2.1-6.9); PLATELET COUNT 245 x10e3/uL (140-360); RED BLOOD COUNT 4.47 x10e6/uL (3.6-5.1); RED CELL DISTRIBUTION WIDTH 13.4 % (11.7-14.4); WHITE BLOOD COUNT 7.19 x10e3/uL (4.8-10.8)
[2023-04-27 06:04] LABS: ALBUMIN 3.4 g/dL (3.5-5.0); ANION GAP 13.1 mmol/L (8-16); BILIRUBIN,TOTAL 0.9 mg/dL (0.2-1.2); CALCIUM 8.5 mg/dL (8.4-10.2); CREATININE, SERUM 0.93 mg/dL (0.57-1.11); POTASSIUM 4.1 mmol/L (3.5-5.1); TOTAL PROTEIN 6.9 g/dL (6.5-8.1)
[2023-04-27 06:36] LABS: TROPONIN I 0.007 ng/mL (0-0.300)
[2023-04-27] MEDS ORDERED: PROPOFOL IV EMULSION 50 ML IV ONE (07:53)
[2023-04-27] MEDS: DULOXETINE HCL 30 MG DELAYED RELEASE PO SCH (11:29)
[2023-04-27] MEDS: AMLODIPINE BESYLATE 10 MG TAB PO SCH (11:32)
[2023-04-27] MEDS: SUCRALFATE 1 GM TAB PO SCH ×3 (11:32→21:28)
[2023-04-27] MEDS ORDERED: FENTANYL CITRATE/PF 100MCG/2 ML INJ ONE (13:35)
[2023-04-27 14:12] LABS: CREATINE KINASE 27 IU/L (29-168)
[2023-04-27 14:20] LABS: TROPONIN I < 0.001 ng/mL (0-0.300)
[2023-04-28] VITALS (8 sets, daily range): BP systolic 143–169; BP diastolic 56–78; PULSE 61–76; RESP 12–20; TEMP 98.1–98.8; O2SAT 97–100
[2023-04-28] MEDS ORDERED: CEPACOL SORE THROAT LOZENGES PO PRN (00:30)
[2023-04-28] MEDS: ONDANSETRON HCL INJ 2MG/ML 2ML 2 MG/ML VIAL IV PRN ×6 (01:17→23:55)
[2023-04-28] MEDS: HYDROMORPHONE 1MG/1ML INJ IV PRN ×6 (01:19→21:41)
[2023-04-28] MEDS: GABAPENTIN 300 MG CAP PO SCH ×5 (05:22→19:39)
[2023-04-28] MEDS: SUCRALFATE 1 GM TAB PO SCH ×4 (07:30→19:39)
[2023-04-28] MEDS: DULOXETINE HCL 30 MG DELAYED RELEASE PO SCH (09:00)
[2023-04-28] MEDS: AMLODIPINE BESYLATE 10 MG TAB PO SCH (09:00)
[2023-04-28] MEDS: SODIUM CHLORIDE 0.9% 1000ML 1,000 ML IV SCH (10:25)
[2023-04-28 10:43] LABS: ANION GAP 18.1 mmol/L (8-16); CALCIUM 8.6 mg/dL (8.4-10.2); CREATININE, SERUM 0.85 mg/dL (0.57-1.11); POTASSIUM 4.1 mmol/L (3.5-5.1)
[2023-04-28 10:44] LABS: ALBUMIN 3.4 g/dL (3.5-5.0); BILIRUBIN,DIRECT 0.3 mg/dL (0.0-0.5); BILIRUBIN,TOTAL 0.7 mg/dL (0.2-1.2); TOTAL PROTEIN 7.1 g/dL (6.5-8.1)
[2023-04-28] MEDS ORDERED: FENTANYL 25 MCG/HR PATCH TOP ONE (13:30)
[2023-04-29] VITALS (8 sets, daily range): BP systolic 140–169; BP diastolic 50–88; PULSE 58–69; RESP 17–20; TEMP 98–98.6; O2SAT 96–100
[2023-04-29] MEDS ORDERED: LIDOCAINE VISC 2% SOLN 15 ML UDC PO ONE (00:30)
[2023-04-29] MEDS ORDERED: BELLADONNA ALK/PHENOBARBITAL 5 ML UDC PO ONE (00:30)
[2023-04-29] MEDS ORDERED: MAGNESIUM/ALUMINUM/SIMETHICONE 30 ML UDC PO ONE (00:30)
[2023-04-29] MEDS ORDERED: DONNATAL/LIDOCAINE/MAALOX 30 ML SUSP PO SCH (00:30)
[2023-04-29] MEDS: PROMETHAZINE 12.5MG/ NACL 0.9% 12.5 MG/50 ML BAG IV PRN ×2 (01:12→20:11)
[2023-04-29] MEDS: CHLORDIAZEPOXIDE/CLIDINIUM 1 CAP PO SCH ×4 (01:13→20:11)
[2023-04-29] MEDS: HYDROMORPHONE 1MG/1ML INJ IV PRN ×10 (01:13→23:38)
[2023-04-29] MEDS: ONDANSETRON HCL INJ 2MG/ML 2ML 2 MG/ML VIAL IV PRN ×4 (04:37→23:37)
[2023-04-29] MEDS: GABAPENTIN 300 MG CAP PO SCH ×5 (05:49→21:28)
[2023-04-29] MEDS: SODIUM CHLORIDE 0.9% 1000ML 1,000 ML IV SCH (06:12)
[2023-04-29 06:31] LABS: ALBUMIN 3.2 g/dL (3.5-5.0); ALBUMIN/GLOBULIN RATIO 0.9 (0.8-2.0); ANION GAP 13.5 mmol/L (8-16); BILIRUBIN,TOTAL 0.7 mg/dL (0.2-1.2); CALCIUM 8.4 mg/dL (8.4-10.2); CREATININE, SERUM 0.92 mg/dL (0.57-1.11); POTASSIUM 3.5 mmol/L (3.5-5.1); TOTAL PROTEIN 6.8 g/dL (6.5-8.1)
[2023-04-29] MEDS: SUCRALFATE 1 GM TAB PO SCH ×4 (07:30→20:18)
[2023-04-29] MEDS: AMLODIPINE BESYLATE 10 MG TAB PO SCH (07:47)
[2023-04-29] MEDS: DULOXETINE HCL 30 MG DELAYED RELEASE PO SCH (09:00)
[2023-04-29] MEDS: DONNATAL/LIDOCAINE/MAALOX 30 ML SUSP PO ONE ×2 (10:56→11:23)
[2023-04-30] VITALS (8 sets, daily range): BP systolic 116–166; BP diastolic 51–90; PULSE 63–71; RESP 16–20; TEMP 97.7–98.6; O2SAT 93–100
[2023-04-30] MEDS: ONDANSETRON HCL INJ 2MG/ML 2ML 2 MG/ML VIAL IV PRN ×4 (02:42→21:00)
[2023-04-30] MEDS: SODIUM CHLORIDE 0.9% 1000ML 1,000 ML IV SCH ×2 (02:42→21:01)
[2023-04-30] MEDS: HYDROMORPHONE 1MG/1ML INJ IV PRN ×6 (02:43→21:00)
[2023-04-30] MEDS: PROMETHAZINE 12.5MG/ NACL 0.9% 12.5 MG/50 ML BAG IV PRN ×2 (05:50→14:55)
[2023-04-30] MEDS: GABAPENTIN 300 MG CAP PO SCH ×5 (05:50→21:00)
[2023-04-30 05:56] LABS: BASOPHILS % 0.4 % (0.0-1.0); EOSINOPHILS # (AUTO) 0.7 (0.0-0.4); EOSINOPHILS % 7.5 % (0.0-6.0); HEMATOCRIT 37.4 % (34.2-44.1); HEMOGLOBIN 12.1 g/dL (12.0-16.0); LYMPHOCYTES # (AUTO) 1.4 (1.0-3.2); LYMPHOCYTES % 14.9 % (18.0-39.1); MEAN CORPUSCULAR HEMOGLOBIN 27.2 pg (28-32); MEAN CORPUSCULAR HGB CONC 32.4 g/dL (31-35); MONOCYTES # (AUTO) 0.9 (0.2-0.8); NEUTROPHILS # (AUTO) 6.2 (2.1-6.9); NEUTROPHILS % 66.9 % (38.7-80.0); PLATELET COUNT 231 x10e3/uL (140-360); RED BLOOD COUNT 4.45 x10e6/uL (3.6-5.1); RED CELL DISTRIBUTION WIDTH 13.7 % (11.7-14.4); WHITE BLOOD COUNT 9.29 x10e3/uL (4.8-10.8)
[2023-04-30 06:23] LABS: ALBUMIN 3.2 g/dL (3.5-5.0); ALBUMIN/GLOBULIN RATIO 0.9 (0.8-2.0); ANION GAP 14.8 mmol/L (8-16); BILIRUBIN,TOTAL 0.3 mg/dL (0.2-1.2); CALCIUM 8.7 mg/dL (8.4-10.2); CREATININE, SERUM 1.02 mg/dL (0.57-1.11); POTASSIUM 3.8 mmol/L (3.5-5.1); TOTAL PROTEIN 6.7 g/dL (6.5-8.1)
[2023-04-30] MEDS: DULOXETINE HCL 30 MG DELAYED RELEASE PO SCH (08:59)
[2023-04-30] MEDS: CHLORDIAZEPOXIDE/CLIDINIUM 1 CAP PO SCH ×3 (08:59→21:00)
[2023-04-30] MEDS: SUCRALFATE 1 GM TAB PO SCH ×4 (08:59→21:00)
[2023-04-30] MEDS ORDERED: ACETAMIN/BUTALBITAL/CAFFEINE TAB PO PRN (11:00)
[2023-04-30] MEDS ORDERED: TRAMADOL HCL 50 MG TAB PO PRN (11:00)
[2023-04-30] MEDS ORDERED: TRAMADOL HCL 50 MG TAB PO ONE (11:30)
[2023-04-30] MEDS ORDERED: ACETAMIN/BUTALBITAL/CAFFEINE TAB PO ONE (11:30)
[2023-04-30] MEDS ORDERED: HYDRALAZINE HCL 20 MG/ML VIAL IV PRN (11:30)
[2023-04-30] MEDS: AMLODIPINE BESYLATE 10 MG TAB PO SCH (17:55)
[2023-05-01] VITALS: BP 170/65; PULSE 62; RESP 18; TEMP 98.3; O2SAT 96
[2023-05-01] MEDS: HYDROMORPHONE 1MG/1ML INJ IV PRN ×3 (00:41→08:00)
[2023-05-01] MEDS: ONDANSETRON HCL INJ 2MG/ML 2ML 2 MG/ML VIAL IV PRN ×3 (00:41→08:00)
[2023-05-01 04:21] VITALS: BP 148/54; PULSE 67; RESP 20; TEMP 98.1; O2SAT 94
[2023-05-01] MEDS: GABAPENTIN 300 MG CAP PO SCH ×2 (05:25→07:59)
[2023-05-01] MEDS: CHLORDIAZEPOXIDE/CLIDINIUM 1 CAP PO SCH (07:59)
[2023-05-01] MEDS: SUCRALFATE 1 GM/10 ML SUSP PO SCH ×2 (07:59→11:44)
[2023-05-01] MEDS: DULOXETINE HCL 30 MG DELAYED RELEASE PO SCH (07:59)
[2023-05-01] MEDS: AMLODIPINE BESYLATE 10 MG TAB PO SCH (08:06)
[2023-05-01 08:33] VITALS: BP 143/67; PULSE 75; RESP 18; TEMP 98.1; O2SAT 97
[2023-05-01 08:50] VITALS: BP 143/67; PULSE 75; RESP 18; TEMP 98.1; O2SAT 97
[2023-05-01] MEDS ORDERED: CYCLOBENZAPRINE HCL 10 MG TAB PO PRN (10:45)
[2023-05-01] MEDS ORDERED: SIMETHICONE 80 MG CHEW PO PRN (10:45)
[2023-05-01] MEDS ORDERED: SORE THROAT LO1 EAC3 PO (11:29)
[2023-05-01] MEDS ORDERED: SIMETHICONE80 MG PO (11:29)
[2023-05-01] MEDS ORDERED: CYCLOBENZAPRINE10 MG PO (11:29)
[2023-05-01] MEDS ORDERED: LIBRAX CAPSULE1 EACH PO (11:29)
[2023-05-01] MEDS ORDERED: ACETAMINOPHEN325 M1 PO (11:29)
[2023-05-01] MEDS ORDERED: CARAFATE1 GM/10 ML PO (11:29)
[2023-05-01] MEDS ORDERED: ULTRAM 50MG50 MG PO (11:29)
[2023-05-03 16:21] LABS: HEPATITIS B SURFACE AG (P) Negative
[2023-05-03 16:23] LABS: HEPATITIS C ANTIBODY Reactive
== END 2023-05-01 12:30 | disposition home or self-care (01) | DRG 392 ==
LOC: ER 07:38 → ERHOLD 12:50 → MED/SURG3 13:29 → OBSVTOIN 04-29 15:58
PROVIDERS: ADMIT Internal Medicine; ATTEND Internal Medicine
PROC: 0DB98ZX Excision of Duodenum, Via Natural or Artificial Opening Endoscopic, Diagnostic (ICD-10-PCS; 2023-04-27)
PROC: 0D718ZZ Dilation of Upper Esophagus, Via Natural or Artificial Opening Endoscopic (ICD-10-PCS; principal; 2023-04-27 08:27)
PROC: 0DB78ZX Excision of Stomach, Pylorus, Via Natural or Artificial Opening Endoscopic, Diagnostic (ICD-10-PCS; 2023-04-27 08:27)
DX: K22.2 Esophageal obstruction (principal); I50.32 Chronic diastolic (congestive) heart failure; K22.89 Other specified disease of esophagus; I11.0 Hypertensive heart disease with heart failure; K57.90 Diverticulosis of intestine, part unspecified, without perforation or abscess without bleeding; K20.90 Esophagitis, unspecified without bleeding; K29.70 Gastritis, unspecified, without bleeding; I71.9 Aortic aneurysm of unspecified site, without rupture; R74.8 Abnormal levels of other serum enzymes; R74.01 Elevation of levels of liver transaminase levels; F32.A Depression, unspecified; R51.9 Headache, unspecified; R13.19 Other dysphagia; R13.10 Dysphagia, unspecified; M54.9 Dorsalgia, unspecified; Z79.82 Long term (current) use of aspirin; Z79.899 Other long term (current) drug therapy; Z20.822 Contact with and (suspected) exposure to COVID-19; Z86.73 Personal history of transient ischemic attack (TIA), and cerebral infarction without residual deficits
CPT/HCPCS: 36415; 43235; 43239; 74176; 74177; 80048; 80053; 80076; 81001; 82550; 83690; 84484; 85025; 88305; 88342; 93005; 96361; 99284; G0378; J1170; J1885; J2001; J2270; J2405; J2550; J7030; Q9967; U0002

== ENCOUNTER 2024-05-01 13:33 | Emergency (ER) | payer MEDICARE ==
[~2024-05-01] VITALS: Ht 167.6 cm; Wt 69.9 kg
[~2024-05-01 13:33] MED LIST changes: +ACETAMINOPHEN325 M1 PO; +ACID REDUCER20 MG PO; +AMLODIPINE BESY10 MG PO; +CARAFATE1 GM/10 ML PO; +CYCLOBENZAPRINE10 MG PO; +CYMBALTA30 MG PO; +FLONASE ALLERG9.9 ML INH; +LIBRAX CAPSULE1 EACH PO; +NEURONTIN300 MG PO; +SIMETHICONE80 MG PO; +SORE THROAT LO1 EAC3 PO
[2024-05-01 13:40] VITALS: PULSE 75; RESP 17; TEMP 98.3
[2024-05-01] MEDS: SODIUM CHLORIDE 0.9% 1000ML 1,000 ML IV STA (14:51)
[2024-05-01] MEDS: ONDANSETRON HCL INJ 2MG/ML 2ML 2 MG/ML VIAL IV STA (14:52)
[2024-05-01] MEDS: BELLADONNA ALK/PHENOBARBITAL 5 ML UDC PO ONE (14:55)
[2024-05-01] MEDS: LIDOCAINE VISC 2% SOLN 15 ML UDC PO ONE (14:55)
[2024-05-01] MEDS: MAGNESIUM/ALUMINUM/SIMETHICONE 30 ML UDC PO ONE (14:55)
[2024-05-01 15:38] LABS: BASOPHILS % 0.3 % (0.0-1.0); EOSINOPHILS # (AUTO) 0.2 (0.0-0.4); EOSINOPHILS % 2.1 % (0.0-6.0); HEMATOCRIT 44.2 % (34.2-44.1); HEMOGLOBIN 14.5 g/dL (12.0-16.0); LYMPHOCYTES # (AUTO) 1.5 (1.0-3.2); LYMPHOCYTES % 15.8 % (18.0-39.1); MEAN CORPUSCULAR HEMOGLOBIN 29.2 pg (28-32); MEAN CORPUSCULAR HGB CONC 32.8 g/dL (31-35); MEAN CORPUSCULAR VOLUME 88.9 fL (81-99); MONOCYTES # (AUTO) 0.6 (0.2-0.8); MONOCYTES % 6.2 % (4.4-11.3); NEUTROPHILS # (AUTO) 7.2 (2.1-6.9); NEUTROPHILS % 75.4 % (38.7-80.0); PLATELET COUNT 324 x10e3/uL (140-360); RED BLOOD COUNT 4.97 x10e6/uL (3.6-5.1); RED CELL DISTRIBUTION WIDTH 12.8 % (11.7-14.4); WHITE BLOOD COUNT 9.49 x10e3/uL (4.8-10.8)
[2024-05-01 15:45] LABS: INR 0.94; PROTHROMBIN TIME 13.2 seconds (11.9-14.5)
[2024-05-01 15:46] LABS: PARTIAL THROMBOPLASTIN TIME 26.5 seconds (23.8-35.5)
[2024-05-01 15:53] LABS: ALBUMIN 4.1 g/dL (3.5-5.0); ANION GAP 17.9 mmol/L (8-16); BILIRUBIN,TOTAL 0.6 mg/dL (0.2-1.2); CALCIUM 9.9 mg/dL (8.4-10.2); CREATININE, SERUM 0.98 mg/dL (0.57-1.11); MAGNESIUM 1.8 MG/DL (1.3-2.1); POTASSIUM 3.9 mmol/L (3.5-5.1); TOTAL PROTEIN 8.1 g/dL (6.5-8.1)
[2024-05-01] MEDS ORDERED: IOPAMIDOL 370 MG/ML 100 ML INFUS..BTL INJ ONE (15:57)
[2024-05-01 15:59] LABS: TROPONIN I 0.011 ng/mL (0-0.300)
[2024-05-01 16:16] LABS: CHOL/HDL RATIO 4.5 (3.0-3.6)
[2024-05-01] MEDS ORDERED: PANTOPRAZOLE SO40 MG PO (17:05)
[2024-05-01] MEDS ORDERED: ONDANSETRON ODT4 MG PO (17:05)
[2024-05-01] MEDS ORDERED: DICYCLOMINE HCL20 MG PO (17:05)
[2024-05-01] MEDS: DICYCLOMINE HCL 20 MG/2 ML VIAL IM ONE (17:17)
[2024-05-01 17:31] VITALS: BP 154/87; PULSE 77; RESP 17; O2SAT 100
== END 2024-05-01 17:37 | disposition home or self-care (01) ==
LOC: ER 13:52
DX: R10.13 Epigastric pain (principal); K29.70 Gastritis, unspecified, without bleeding; I10 Essential (primary) hypertension; I50.9 Heart failure, unspecified; M81.0 Age-related osteoporosis without current pathological fracture; M54.9 Dorsalgia, unspecified; G89.29 Other chronic pain
CPT/HCPCS: 36415; 71045; 74177; 80053; 80061; 82550; 83690; 83735; 84484; 85025; 85610; 85730; 93005; 99284; J0500; J2405; J2470; J7030; Q9967